=== PATIENT | female | born 1985 | race Hispanic/Latino ===

== ENCOUNTER 2018-02-15 11:16 | Emergency (ER) | payer MEDICAID, OTHER ==
[2018-02-15 11:16] VITALS: BMI 22.3
--- NOTE | 2018-02-15 13:27 | C.PDOC ---
History Of Present Illness 32 y/o female presents to ED requesting detox from ETOH and Marijuana, last use yesterday. At ED patient appears to be anxious appearing and asking currently denies chest pain, suicidal ideation, homicidal ideation, hallucinations or any other physical complaints at this time. Time Seen by Provider: 02/15/18 12:28 Chief Complaint (Nursing): Substance Abuse History Per: Patient History/Exam Limitations: no limitations Onset/Duration Of Symptoms: Days Current Symptoms Are (Timing): Still Present Suicide/Self Injury Attempted (Context): None Modifying Factor(s): Alcohol, Marijuana Past Medical History Reviewed: Historical Data, Nursing Documentation, Vital Signs Vital Signs: Last Vital Signs Temp 97.6 F 02/15/18 15:14 Pulse 91 H 02/15/18 15:14 Resp 18 02/15/18 15:14 BP 134/88 02/15/18 15:14 Pulse Ox 99 02/15/18 15:14 - Medical History PMH: Anxiety, Bronchitis, Gastrointestinal Ulcer, Pancreatitis Surgical History: Endoscopy - [facility] Procedures INJECT/INFUSE NEC (06/18/04) Family History: States: No Known Family Hx - Social History Hx Tobacco Use: No Hx Alcohol Use: Yes Hx Substance Use: Yes - Immunization History Hx Tetanus Toxoid Vaccination: No Hx Influenza Vaccination: No Hx Pneumococcal Vaccination: No Review Of Systems Constitutional: Negative for: Fever, Chills Cardiovascular: Negative for: Chest Pain Gastrointestinal: Negative for: Nausea, Vomiting Psych: Negative for: Suicidal ideation, Withdrawal Physical Exam - Physical Exam Appears: Non-toxic, Other (Anxious) Skin: Warm, Dry, No Rash Head: Atraumatic, Normacephalic Eye(s): bilateral: Normal Inspection Oral Mucosa: Moist Neck: Normal ROM, Supple Cardiovascular: Rhythm Regular Respiratory: Normal Breath Sounds, No Rales, No Rhonchi, No Wheezing Gastrointestinal/Abdominal: Soft, No Tenderness, No Guarding, No Rebound Neurological/Psych: Oriented x3, Normal Speech, Normal Cognition ED Course And Treatment O2 Sat by Pulse Oximetry: 98 (RA) Pulse Ox Interpretation: Normal Progress Note: On re-evlauation, pt is afebrile, hemodynamicaly stable. NOn- toxic. AMbulatory in Ed with stable gait. Neck: Supple, (-)JVD. Lungs: CTA B/L , BS equal B/L. Abd: benign, (-) guaridng, (-) rebound. Neurologicaly Pt was given outpt resources. Pt advised. Ref. to Follow up with Detox in 1-2 days for re-eval. return to Ed if any worsening or new changes. Disposition Counseled Patient/Family Regarding: Diagnosis, Need For Followup - Disposition Referrals: [facility] at [facility] [Outside] Disposition: HOME/ ROUTINE Disposition Time: 13:27 Condition: STABLE Additional Instructions: CALL DETOX TOMORROW AT [phone] FOR BED AVAILABILITY RETURN TO ED IF ANY NEW CHANGES. 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 - Scribe Statement The provider has reviewed the documentation as recorded by the Scribcorazon Schaffer All medical record entries made by the Philipibcorazon were at my direction and personally dictated by me. I have reviewed the chart and agree that the record accurately reflects my personal performance of the history, physical exam, medical decision making, and the department course for this patient. I have also personally directed, reviewed, and agree with the discharge instructions and disposition.
[2018-02-15 13:52] VITALS: RESP 18
[2018-02-15 15:15] VITALS: BP 134/88; PULSE 91; TEMP 97.6
[2018-02-17 04:05] VITALS: O2SAT 98
== END 2018-02-15 15:14 | disposition home or self-care (01) ==
LOC: C.ER 11:16
DX: F10.10 Alcohol abuse, uncomplicated (principal); Y90.9 Presence of alcohol in blood, level not specified
CPT/HCPCS: 96372; 99284; J2060

== ENCOUNTER 2018-02-16 01:06 | Inpatient (IN) | payer MEDICAID, OTHER ==
[2018-02-16 01:06] VITALS: BMI 22.3
--- NOTE | 2018-02-16 02:31 | C.PDOC ---
History Of Present Illness <María Vazquez - Last Filed: 02/16/18 07:23> <Marv Haywood - Last Filed: 02/18/18 20:01> 32 year old female presents to the emergency department requesting detox from alcohol. Patient reports having a history of depression, and states that she was seen in the ED earlier requesting detox. (Marv Haywood R) <María Vazquez - Last Filed: 02/16/18 07:23> History Per: Patient History/Exam Limitations: intoxication Onset/Duration Of Symptoms: Hrs Current Symptoms Are (Timing): Still Present Modifying Factor(s): Alcohol <Marv Haywood R - Last Filed: 02/18/18 20:01> Chief Complaint (Nursing): Substance Abuse Past Medical History Reviewed: Historical Data, Nursing Documentation, Vital Signs - Medical History PMH: Anxiety, Bronchitis, Gastrointestinal Ulcer, Pancreatitis Denies: Depression, Diabetes, Hepatitis, HIV, HTN, End Stage Renal Disease, Chronic Kidney Disease, Seizures, Sexually Transmitted Disease Surgical History: Endoscopy Family History: States: Unknown Family Hx - Social History Hx Tobacco Use: No Hx Alcohol Use: Yes (DRINKING 17 YRS) Hx Substance Use: Yes (WEED) - Immunization History Hx Tetanus Toxoid Vaccination: No Hx Influenza Vaccination: No Hx Pneumococcal Vaccination: No <Marv Haywood R - Last Filed: 02/18/18 20:01> Vital Signs: Last Vital Signs Temp 98.3 F 02/18/18 16:46 Pulse 84 02/18/18 16:46 Resp 18 02/18/18 16:46 BP 117/79 02/18/18 16:46 Pulse Ox 97 02/18/18 20:01 - [facility] Procedures INJECT/INFUSE NEC (06/18/04) Review Of Systems Constitutional: Negative for: Fever, Chills Neurological: Positive for: Other (intoxication) <Marv Haywood R - Last Filed: 02/18/18 20:01> Physical Exam - Physical Exam Appears: Non-toxic, No Acute Distress Oral Mucosa: Other (smell of EtOH on breath) Cardiovascular: Rhythm Regular Respiratory: Normal Breath Sounds Gastrointestinal/Abdominal: Normal Exam, Soft, No Tenderness <Marv Haywood R - Last Filed: 02/18/18 20:01> ED Course And Treatment - Laboratory Results Result Diagrams: 02/16/18 02:41 02/16/18 02:41 <María Vazquez - Last Filed: 02/16/18 07:23> - Laboratory Results Result Diagrams: 02/18/18 14:17 02/18/18 14:17 O2 Sat by Pulse Oximetry: 97 (RA) Pulse Ox Interpretation: Normal <YobanyMarv Gurwinder - Last Filed: 02/18/18 20:01> Medical Decision Making <María Vazquez - Last Filed: 02/16/18 07:23> <Gay Haywoodankita Purdy - Last Filed: 02/18/18 20:01> Medical Decision Making: Plan: Alcohol Serum CMP Drug Screen CBC HCG Urinalysis (Marv Haywood) Disposition Counseled Patient/Family Regarding: Diagnosis - Disposition Disposition Time: 07:22 - POA Present On Arrival: None <María Vazquez - Last Filed: 02/16/18 07:23> Discussed With : Olimpia Mendiola Counseled Patient/Family Regarding: Diagnosis - POA Present On Arrival: None <Marv Haywood - Last Filed: 02/18/18 20:01> - Disposition Disposition: HOSPITALIZED Condition: STABLE - Clinical Impression Clinical Impression: Alcohol abuse <María Vazquez - Last Filed: 02/16/18 07:23> - Scribe Statement The provider has reviewed the documentation as recorded by the Scribe (Viktor Woodard) <YobanyMarv Gurwinder - Last Filed: 02/18/18 20:01> - Scribe Statement Provider Attestation: All medical record entries made by the Scribe were at my direction and personally dictated by me. I have reviewed the chart and agree that the record accurately reflects my personal performance of the history, physical exam, medical decision making, and the department course for this patient. I have also personally directed, reviewed, and agree with the discharge instructions and disposition. (Marv Haywood) Decision To Admit - Pt Status Changed To: Hospital Disposition Of: Inpatient - Admit Certification Admit to Inpatient:: After my assessment, the patient will require hospitalization for at least two midnights. This is because of the severity of symptoms shown, intensity of services needed, and/or the medical risk in this patient being treated as an outpatient. - InPatient: Physician Admission Certification: I certify that this patient requires 2 or more midnights of care for the following reason:: see note - . Bed Request Type: Detox Admitting Physician: Olimpia Mendiola <María Vazquez - Last Filed: 02/16/18 07:23> <Marv Haywood - Last Filed: 02/18/18 20:01> - . Patient Diagnosis: Alcohol abuse
[2018-02-16 02:44] LABS: BASO # 0.1 K/uL (0.0-0.2); BASO % 1.1 % (0.0-2.0); EOS # 0.1 K/uL (0.0-0.7); EOS % 1.9 % (0.0-4.0); HEMOGLOBIN 14.2 g/dL (11.0-16.0); LYMPH # 2.3 K/uL (1.0-4.3); LYMPH % 41.2 % (20.0-40.0); MEAN CORPUSCULAR HEMOGLOBIN 33.1 pg (27.0-31.0); MEAN CORPUSCULAR HGB CONC 35.2 g/dL (33.0-37.0); MEAN PLATELET VOLUME 7.9 fL (7.2-11.7); MONO # 0.7 K/uL (0.0-0.8); MONO % 12.5 % (0.0-10.0); NEUT # 2.4 K/uL (1.8-7.0); NEUT % 43.3 % (50.0-75.0); RBC 4.27 Mil/uL (3.80-5.20); RED CELL DISTRIBUTION WIDTH 12.8 % (11.5-14.5); WHITE BLOOD COUNT 5.6 K/uL (4.8-10.8)
[2018-02-16 02:44] LABS: SQUAMOUS EPITHIAL < 1 /hpf (0-5); URINE BILIRUBIN NEGATIVE (NEGATIVE); URINE CLARITY Clear (Clear); URINE COLOR Straw (YELLOW); URINE GLUCOSE (UA) NORMAL (Normal); URINE LEUKOCYTE ESTERASE NEG Leu/uL (Negative); URINE PROTEIN NEGATIVE (NEGATIVE); URINE UROBILINOGEN NORMAL mg/dL (0.2-1.0)
[2018-02-16 02:45] LABS: URINE BLOOD NEGATIVE (NEGATIVE)
[2018-02-16 02:57] LABS: ALB/GLOB RATIO 1.2 (1.0-2.1); ALBUMIN 4.7 g/dL (3.5-5.0); ALT/SGPT 19 U/L (9-52); AST/SGOT 45 U/L (14-36); BLOOD UREA NITROGEN 6 mg/dL (7-17); CALCIUM 9.1 mg/dl (8.6-10.4); GFR AFRICAN-AMERICAN > 60; GFR NON-AFRICAN AMERICAN > 60
[2018-02-16 03:03] LABS: BARBITURATES, UR NEGATIVE (NEGATIVE); BENZODIAZEPINES, UR NEGATIVE (NEGATIVE); OPIATES, UR NEGATIVE (NEGATIVE); PHENCYCLIDINE, UR NEGATIVE (NEGATIVE)
--- NOTE | 2018-02-16 11:35 | PCM.BM ---
<Marlyn Terrazas - Last Filed: 02/16/18 11:34> Treatment Plan Problems - Problems identified on initial assessmt potential for alcohol withdrawals Date Initiated: 02/16/18 Assessment reference: NA Status: Active Treatment assets and liabiliti Patient Assests: adapts well, cooperative, ADL independent, negotiates basic needs Patient Liabilities: substance abuse - Milieu Protocol Maintain good personal hygiene: daily Encourage regular showers, daily Remind patient to perform daily oral care, daily Assist patient to perform ADL's Conduct patient checks and document Observation sheet: Q15 minutes Maintain personal safety: every shift Educate patient to report safety concerns to staff, every shift Monitor environment for contraband/sharps Medication safety: Monitor for expected outcome, potential side effects: every shift, Assess barriers to learning: every shift, Assess readiness for medication education: every shift <Bianca Gray - Last Filed: 02/18/18 11:15> - Diagnosis (1) Alcohol use disorder, severe, dependence Status: Acute Interventions: 02/18/18 11:15 * Assess 7x/week regarding severity of withdrawal * Educate regarding risks, benefits, side effects and alternatives of medications * Use Motivational Interviewing for abstinence * Use CBT for relapse prevention * Medication management for withdrawal symptoms * Encourage medication assisted treatment *
[2018-02-16] MEDS ORDERED: Vitamins A & D Oint UD Foilpak TOP PRN (11:47)
[2018-02-16] MEDS: Benzocaine/Menthol (Cepacol) Lozenge MT PRN (17:31)
[2018-02-16] MEDS: Multiple Vitamins Tab PO SCH (18:00)
[2018-02-17] MEDS: Multiple Vitamins Tab PO SCH (09:04)
[2018-02-17] MEDS: Pantoprazole 20 mg EC Tab PO SCH (10:31)
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
[2018-02-17 12:39] VITALS: RESP 18
[2018-02-17] MEDS: Benzocaine/Menthol (Cepacol) Lozenge MT PRN ×2 (13:49→19:29)
[2018-02-18] MEDS: Pantoprazole 20 mg EC Tab PO SCH (09:19)
[2018-02-18] MEDS: Multiple Vitamins Tab PO SCH (09:19)
--- NOTE | 2018-02-18 11:14 | PCM.PYCHPN ---
Psychiatric Progress Note - Psychiatric Progress Note Patient seen today, length of contact: 17 min Patient Chief Complaint: "I am not well" Problems Identified/Issues Discussed: The pt is seen, chart reviewed, case discussed with staff. The pt is compliant with medications and reports no side-effects. Symptoms are improving but needs more time to stabilize. After care discussed, support and psychoeducation given. She now says she is NOT sure if she can attend IOP bc she has to work Risks discussed No Ses from naltrexone CXR for cough Medication Change: Yes (detox changes daily) Medical Record Reviewed: Yes Mental Status Examination - Cognitive Function Orientation: Person, Place, Situation, Time Memory: Impaired Attention: Poor Concentration: Poor Association: WNL Fund of Knowledge: Poor - Mood Mood: Depressed, Anxious - Affect Affect: Constricted - Speech Speech: Appropriate - Formal Thought Process Formal Thought Process: No Impairment - Suicidal Ideation Suicidal Ideation: No - Homicidal Ideation Homicidal Ideation: No Goal/Treatment Plan - Goal/Treatment Plan Need for Continued Stay: Discharge may exacerbated symptoms, Severe functional impairment Progress Toward Problem(s) and Goals/Treatment Plan: Taper with Librium Gabapentin for augmentation Zoloft for PTSD and depression, dose increased As needed medications All risks, benefits and alternatives of the meds discussed, and the pt agreed and understood. Attend groups and activities Supportive therapy and psychoeducation MA for abstinence CBT for relapse prevention Encourage MAT: She agreed for naltrexone for now Refer to rehab or IOP, and self-help groups Smoking cessation with MA Nicotine patch if needed CXR
--- NOTE | 2018-02-18 12:15 | RAD ---
HISTORY: Alcohol abuse. Cough COMPARISON: No prior. TECHNIQUE: Chest PA and lateral FINDINGS: LUNGS: No active pulmonary disease. PLEURA: No significant pleural effusion identified. No pneumothorax apparent. CARDIOVASCULAR: Normal. OSSEOUS STRUCTURES: No significant abnormalities. VISUALIZED UPPER ABDOMEN: Normal. OTHER FINDINGS: None. IMPRESSION: No active disease.
[2018-02-18 14:23] LABS: BASO % 0.6 % (0.0-2.0); EOS # 0.2 K/uL (0.0-0.7); EOS % 3.4 % (0.0-4.0); HEMOGLOBIN 13.2 g/dL (11.0-16.0); LYMPH # 0.9 K/uL (1.0-4.3); LYMPH % 20.7 % (20.0-40.0); MEAN CELL VOLUME 94.7 fL (81.0-99.0); MEAN CORPUSCULAR HEMOGLOBIN 33.4 pg (27.0-31.0); MEAN CORPUSCULAR HGB CONC 35.3 g/dL (33.0-37.0); MEAN PLATELET VOLUME 8.6 fL (7.2-11.7); MONO # 0.5 K/uL (0.0-0.8); MONO % 10.1 % (0.0-10.0); NEUT # 2.9 K/uL (1.8-7.0); NEUT % 65.2 % (50.0-75.0); RBC 3.94 Mil/uL (3.80-5.20); RED CELL DISTRIBUTION WIDTH 12.6 % (11.5-14.5); WHITE BLOOD COUNT 4.5 K/uL (4.8-10.8)
[2018-02-18 14:45] LABS: ALB/GLOB RATIO 1.1 (1.0-2.1); ALBUMIN 4.1 g/dL (3.5-5.0); ALT/SGPT 28 U/L (9-52); AST/SGOT 86 U/L (14-36); BLOOD UREA NITROGEN 7 mg/dL (7-17); CALCIUM 9.5 mg/dl (8.6-10.4); GFR AFRICAN-AMERICAN > 60; GFR NON-AFRICAN AMERICAN > 60; LIPASE 39 U/L (23-300)
[2018-02-18] MEDS: Benzocaine/Menthol (Cepacol) Lozenge MT PRN (17:04)
[2018-02-19] MEDS: Benzocaine/Menthol (Cepacol) Lozenge MT PRN (10:10)
[2018-02-19] MEDS: Multiple Vitamins Tab PO SCH (10:11)
[2018-02-19] MEDS: Pantoprazole 20 mg EC Tab PO SCH (10:11)
--- NOTE | 2018-02-19 11:13 | PCM.PYCHPN ---
Psychiatric Progress Note - Psychiatric Progress Note Patient seen today, length of contact: 17 min Patient Chief Complaint: "I am not well" Problems Identified/Issues Discussed: The pt is seen, chart reviewed, case discussed with staff. The pt is compliant with medications and reports no side-effects. Symptoms are improving but needs more time to stabilize. After care discussed, support and psychoeducation given. She now says she is NOT sure if she can attend IOP bc she has to work Risks discussed No Ses from naltrexone CXR for cough Medication Change: Yes (detox changes daily) Medical Record Reviewed: Yes Mental Status Examination - Cognitive Function Orientation: Person, Place, Situation, Time Memory: Impaired Attention: Poor Concentration: Poor Association: WNL Fund of Knowledge: Poor - Mood Mood: Depressed, Anxious - Affect Affect: Constricted - Speech Speech: Appropriate - Formal Thought Process Formal Thought Process: No Impairment - Suicidal Ideation Suicidal Ideation: No - Homicidal Ideation Homicidal Ideation: No Goal/Treatment Plan - Goal/Treatment Plan Need for Continued Stay: Discharge may exacerbated symptoms, Severe functional impairment Progress Toward Problem(s) and Goals/Treatment Plan: Taper with Librium Gabapentin for augmentation Zoloft for PTSD and depression, dose increased As needed medications All risks, benefits and alternatives of the meds discussed, and the pt agreed and understood. Attend groups and activities Supportive therapy and psychoeducation [place] for abstinence CBT for relapse prevention Encourage MAT: She agreed for naltrexone for now Refer to rehab or IOP, and self-help groups Smoking cessation with [place] Nicotine patch if needed CXR
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
[2018-02-20 09:05] VITALS: BP 101/70; PULSE 88; TEMP 98.3; O2SAT 98
[2018-02-20] MEDS: Pantoprazole 20 mg EC Tab PO SCH (09:25)
[2018-02-20] MEDS: Multiple Vitamins Tab PO SCH (09:25)
== END 2018-02-20 12:00 | disposition home or self-care (01) | DRG 751 ==
LOC: C.ER 01:06 → C.9E 07:24 → C.7D 10:51
PROVIDERS: ADMIT Psychiatry & Neurology Psychiatry; ATTEND Psychiatry & Neurology Psychiatry
PROC: HZ2ZZZZ Detoxification Services for Substance Abuse Treatment (ICD-10-PCS; principal; 2018-02-16)
PROC: HZ52ZZZ Individual Psychotherapy for Substance Abuse Treatment, Cognitive-Behavioral (ICD-10-PCS; 2018-02-16)
PROC: HZ59ZZZ Individual Psychotherapy for Substance Abuse Treatment, Supportive (ICD-10-PCS; 2018-02-16)
PROC: HZ56ZZZ Individual Psychotherapy for Substance Abuse Treatment, Psychoeducation (ICD-10-PCS; 2018-02-16)
PROC: HZ42ZZZ Group Counseling for Substance Abuse Treatment, Cognitive-Behavioral (ICD-10-PCS; 2018-02-16)
PROC: HZ46ZZZ Group Counseling for Substance Abuse Treatment, Psychoeducation (ICD-10-PCS; 2018-02-16)
PROC: GZHZZZZ Group Psychotherapy (ICD-10-PCS; 2018-02-16)
PROC: GZ58ZZZ Individual Psychotherapy, Cognitive-Behavioral (ICD-10-PCS; 2018-02-16)
PROC: GZ56ZZZ Individual Psychotherapy, Supportive (ICD-10-PCS; 2018-02-16)
DX: F10.230 Alcohol dependence with withdrawal, uncomplicated (principal); F12.20 Cannabis dependence, uncomplicated; Y90.8 Blood alcohol level of 240 mg/100 ml or more; F14.10 Cocaine abuse, uncomplicated; F32.9 Major depressive disorder, single episode, unspecified; F43.10 Post-traumatic stress disorder, unspecified; F41.9 Anxiety disorder, unspecified; R05 Cough

== ENCOUNTER 2018-08-24 11:21 | Inpatient (IN) | payer MEDICAID, OTHER ==
[2018-08-24 11:21] VITALS: BMI 21.3
[2018-08-24] MEDS ORDERED: Sodium Chloride 0.9% 1,000 ML IV ONE (11:59)
[2018-08-24] MEDS ORDERED: Sodium Chloride 0.9% 1,000 ML ONE ×2 (12:23→12:58)
[2018-08-24] MEDS: Sodium Chloride 0.9% 1,000 ML IV ONE (12:27)
[2018-08-24 12:37] LABS: BASO % 0.5 % (0.0-2.0); EOS % 0.4 % (0.0-4.0); LYMPH # 0.7 K/uL (1.0-4.3); MEAN CELL VOLUME 92.9 fL (81.0-99.0); MEAN CORPUSCULAR HEMOGLOBIN 32.2 pg (27.0-31.0); MEAN CORPUSCULAR HGB CONC 34.7 g/dL (33.0-37.0); MEAN PLATELET VOLUME 7.9 fL (7.2-11.7); MONO # 0.7 K/uL (0.0-0.8); MONO % 8.9 % (0.0-10.0); NEUT # 6.1 K/uL (1.8-7.0); NEUT % 81.2 % (50.0-75.0); NRBC % 0.1 % (0.0-2.0); PLATELET COUNT 247 K/uL (130-400); RBC 4.89 Mil/uL (3.80-5.20); RED CELL DISTRIBUTION WIDTH 13.1 % (11.5-14.5)
[2018-08-24 12:38] LABS: HEMOGLOBIN 15.8 g/dL (11.0-16.0); WHITE BLOOD COUNT 7.5 K/uL (4.8-10.8)
--- NOTE | 2018-08-24 12:43 | C.PDOC ---
History Of Present Illness 32 y/o female presents to the ED complaining of nausea, vomiting, and abdominal pain that began today. Patient reports history of alcohol abuse and states she is currently trying to self detox. Of note patient was recently in [place], states she was diagnosed with pancreatitis. Patient is interested in detox but is mostly concerned that abdominal pain is consistent with another episode of pancreatitis. She denies any fever, chills, SOB, dizziness, diarrhea, black or bloody stools. Time Seen by Provider: 08/24/18 11:38 Chief Complaint (Nursing): Substance Abuse History Per: Patient History/Exam Limitations: no limitations Onset/Duration Of Symptoms: Hrs Current Symptoms Are (Timing): Still Present Location Of Pain/Discomfort: RUQ, LUQ Quality Of Discomfort: "Pain" Associated Symptoms: Nausea, Vomiting Past Medical History Reviewed: Historical Data, Nursing Documentation, Vital Signs Vital Signs: Last Vital Signs Temp 98.4 F 08/24/18 12:19 Pulse 94 H 08/24/18 12:19 Resp 20 08/24/18 12:19 BP 159/94 H 08/24/18 12:19 Pulse Ox 98 08/24/18 12:19 - Medical History PMH: Anxiety, Bronchitis, Depression, Gastrointestinal Ulcer, Pancreatitis Denies: Diabetes, Hepatitis, HIV, HTN, End Stage Renal Disease, Chronic Kidney Disease, Seizures, Sexually Transmitted Disease Surgical History: Endoscopy - [facility] Procedures DETOXIFICATION SERVICES FOR SUBSTANCE ABUSE TREATMENT (02/16/18) GROUP REGISTRAR COLLEGE OR UNIVERSITY FOR SUBSTANCE ABUSE TREATMENT, PSYCHOEDUCATION (02/16/18) GROUP REGISTRAR COLLEGE OR UNIVERSITY FOR SUBSTANCE ABUSE, COGNITIVE BEHAVIORAL (02/16/18) GROUP PSYCHOTHERAPY (02/16/18) INDIV PSYCHOTHERAPY FOR SUBSTANCE ABUSE TREATMENT, SUPPORT (02/16/18) INDIV PSYCHOTHERAPY FOR SUBSTANCE ABUSE, COGNITIV BEHAVIORAL (02/16/18) INDIV PSYCHOTHERAPY FOR SUBSTANCE ABUSE, PSYCHOEDUCATION (02/16/18) INDIVIDUAL PSYCHOTHERAPY, COGNITIVE-BEHAVIORAL (02/16/18) INDIVIDUAL PSYCHOTHERAPY, SUPPORTIVE (02/16/18) INJECT/INFUSE NEC (06/18/04) Family History: States: Unknown Family Hx - Social History Hx Tobacco Use: No Hx Alcohol Use: Yes (DRINKING 17 YRS) Hx Substance Use: Yes - Immunization History Hx Tetanus Toxoid Vaccination: No Hx Influenza Vaccination: No Hx Pneumococcal Vaccination: No Review Of Systems Constitutional: Negative for: Fever, Chills Cardiovascular: Negative for: Chest Pain Respiratory: Negative for: Shortness of Breath Gastrointestinal: Positive for: Nausea, Vomiting, Abdominal Pain. Negative for: Diarrhea, Hematochezia Genitourinary: Negative for: Dysuria, Frequency, Hematuria Neurological: Negative for: Weakness, Numbness, Dizziness Psych: Positive for: Withdrawal (from alcohol). Negative for: Suicidal ideation Physical Exam - Physical Exam Appears: Non-toxic, In Acute Distress (mild pain), Other (Writhing in pain, actively vomiting) Skin: Warm, Dry Head: Atraumatic, Normacephalic Eye(s): bilateral: Normal Inspection, PERRL, EOMI Neck: Normal ROM Chest: Symmetrical Cardiovascular: Rhythm Regular, No Murmur Respiratory: Normal Breath Sounds, No Accessory Muscle Use Gastrointestinal/Abdominal: Soft, Tenderness (to the upper abdomen), No Guarding, No Rebound Back: No CVA Tenderness Extremity: Bilateral: Atraumatic, Normal Color And Temperature, Normal ROM Neurological/Psych: Oriented x3, Normal Speech ED Course And Treatment - Laboratory Results Result Diagrams: 08/24/18 12:27 08/24/18 12:27 Lab Interpretation: No Acute Changes Urine POC: Negative O2 Sat by Pulse Oximetry: 98 (RA) Pulse Ox Interpretation: Normal - Other Rad No standard instances Interpretation: FINDINGS: LOWER THORAX: No visible consolidation, pleural effusion, or pneumothorax. LIVER: Hepatomegaly. Hypoattenuation of the liver compatible with hepatic steatosis. GALLBLADDER AND BILE DUCTS: Unremarkable. PANCREAS: Pancreas appears edematous with peripancreatic inflammatory changes evident. SPLEEN: Unremarkable. ADRENALS: Unremarkable. KIDNEYS AND URETERS: The kidneys enhance symmetrically. No hydronephrosis or obstructing calculus identified. VASCULATURE: No aortic aneurysm. No atherosclerotic calcification or mural plaque present. BOWEL: Stomach is nondistended. Lack of oral contrast limits evaluation for bowel pathology. Bowel loops appear within normal limits of caliber without evidence of obstruction. APPENDIX: The appendix is not identified. No secondary signs of acute appendicitis. PERITONEUM: No significant free fluid. No definite free air. LYMPH NODES: No bulky adenopathy identified. BLADDER: Unremarkable. REPRODUCTIVE: The uterus is present. Probable bilateral ovarian cysts. BONES: No acute osseous abnormality is detected. OTHER FINDINGS: None. IMPRESSION: Pancreas appears edematous with peripancreatic inflammatory changes evident. Findings consistent with acute appendicitis. Correlate with amylase and lipase. Hepatomegaly. Hypoattenuation of the liver compatible with hepatic steatosis. Probable bilateral ovarian cyst. Pelvic ultrasound may be considered for further evaluation if indicated. - CT Scan/US No standard instances Other Rad Studies (CT/US): Read By Radiologist Progress Note: Treated with IVF NSS x2, ativan and toradol. On re-evaluation abdomen mild ternderness Reassessment Condition: Unchanged - Physician Consult Information Physician Contacted: Eh Laurent Outcome Of Conversation: admit Medical Decision Making Medical Decision Making: Plan: --CMP --Lipase --Amylase --Alcohol serum --CBC --UA --Urine HCG --1 mg Ativan IV --IV fluids Disposition Discussed With Dr.: Eh Laurent Doctor Will See Patient In The: Hospital - Disposition Disposition: HOSPITALIZED Disposition Time: 14:00 Condition: STABLE - POA Present On Arrival: None - Clinical Impression Clinical Impression: Pancreatitis, Vomiting, Nausea and vomiting - PA / GEOINT ANALYST / Resident Statement MD/DO has reviewed & agrees with the documentation as recorded. - Scribe Statement The provider has reviewed the documentation as recorded by the Scribe (Yelena Parks) All medical record entries made by the Scribe were at my direction and personally dictated by me. I have reviewed the chart and agree that the record accurately reflects my personal performance of the history, physical exam, medical decision making, and the department course for this patient. I have also personally directed, reviewed, and agree with the discharge instructions and disposition. Decision To Admit - Pt Status Changed To: Hospital Disposition Of: Inpatient - Admit Certification Admit to Inpatient:: After my assessment, the patient will require hospitalization for at least two midnights. This is because of the severity of symptoms shown, intensity of services needed, and/or the medical risk in this patient being treated as an outpatient. - InPatient: Physician Admission Certification:: abdominal pain. Pancreatitis - . Bed Request Type: Regular Admitting Physician: Eh Laurent Patient Diagnosis: Pancreatitis, Vomiting, Nausea and vomiting
[2018-08-24 12:57] LABS: SQUAMOUS EPITHIAL 2 /hpf (0-5); URINE BACTERIA RARE (<OCC); URINE BILIRUBIN NEGATIVE (NEGATIVE); URINE BLOOD 1+ (NEGATIVE); URINE CLARITY Clear (Clear); URINE COLOR Yellow (YELLOW); URINE GLUCOSE (UA) NORMAL (Normal); URINE HYALINE CAST 0-2 /lpf (0-2); URINE LEUKOCYTE ESTERASE NEG Leu/uL (Negative); URINE PROTEIN 2+ mg/dL (NEGATIVE); URINE UROBILINOGEN NORMAL mg/dL (0.2-1.0)
[2018-08-24 12:58] LABS: HCG,QUALITATIVE URINE NEGATIVE (NEGATIVE)
[2018-08-24 12:58] LABS: ALB/GLOB RATIO 1.1 (1.0-2.1); ALBUMIN 5.4 g/dL (3.5-5.0); ALT/SGPT 42 U/L (9-52); AMYLASE 117 U/L (30-110); AST/SGOT 72 U/L (14-36); BLOOD UREA NITROGEN 10 mg/dL (7-17); CALCIUM 9.8 mg/dl (8.6-10.4); GFR NON-AFRICAN AMERICAN > 60; LIPASE 756 U/L (23-300)
[2018-08-24 13:04] LABS: BANDS 7 % (0-2); EOSINOPHIL 1 % (0-4); LYMPHOCYTE 9 % (20-40); MONOCYTE 7 % (0-10); NEUTROPHIL 75 % (50-75); PLATELET ESTIMATE NORMAL (NORMAL); REACTIVE LYMPHOCYTES 1 % (0-0); STOMATOCYTES SLIGHT; TOTAL CELLS COUNTED 100
[2018-08-24] MEDS ORDERED: Iodixanol 320 mg/ml 150 ml Bottle IV ONE (14:13)
[2018-08-24 14:46] LABS: BARBITURATES, UR NEGATIVE (NEGATIVE); PHENCYCLIDINE, UR NEGATIVE (NEGATIVE)
[2018-08-24] MEDS ORDERED: Multivitamin (MVI) 10 ML, Thiamine 100 MG, Folic Acid 1 MG in Sodium Chloride 0.9% 1,00... IV ONE (15:01)
[2018-08-24 15:07] LABS: OPIATES, UR NEGATIVE (NEGATIVE)
[2018-08-24 15:12] LABS: BENZODIAZEPINES, UR POSITIVE (NEGATIVE)
--- NOTE | 2018-08-24 15:50 | CT ---
Date of service: 08/24/2018 PROCEDURE: CT Abdomen and Pelvis with contrast HISTORY: pancreatitis COMPARISON: None available. TECHNIQUE: Contrast dose: 100 mL Visipaque IV Radiation dose: Total exam DLP = 261.44 mGy-cm. This CT exam was performed using one or more of the following dose reduction techniques: Automated exposure control, adjustment of the mA and/or kV according to patient size, and/or use of iterative reconstruction technique. FINDINGS: LOWER THORAX: No visible consolidation, pleural effusion, or pneumothorax. LIVER: Hepatomegaly. Hypoattenuation of the liver compatible with hepatic steatosis. GALLBLADDER AND BILE DUCTS: Unremarkable. PANCREAS: Pancreas appears edematous with peripancreatic inflammatory changes evident. SPLEEN: Unremarkable. ADRENALS: Unremarkable. KIDNEYS AND URETERS: The kidneys enhance symmetrically. No hydronephrosis or obstructing calculus identified. VASCULATURE: No aortic aneurysm. No atherosclerotic calcification or mural plaque present. BOWEL: Stomach is nondistended. Lack of oral contrast limits evaluation for bowel pathology. Bowel loops appear within normal limits of caliber without evidence of obstruction. APPENDIX: The appendix is not identified. No secondary signs of acute appendicitis. PERITONEUM: No significant free fluid. No definite free air. LYMPH NODES: No bulky adenopathy identified. BLADDER: Unremarkable. REPRODUCTIVE: The uterus is present. Probable bilateral ovarian cysts. BONES: No acute osseous abnormality is detected. OTHER FINDINGS: None. IMPRESSION: Pancreas appears edematous with peripancreatic inflammatory changes evident. Findings consistent with acute appendicitis. Correlate with amylase and lipase. Hepatomegaly. Hypoattenuation of the liver compatible with hepatic steatosis. Probable bilateral ovarian cyst. Pelvic ultrasound may be considered for further evaluation if indicated.
[2018-08-24 15:54] VITALS: RESP 20
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
[2018-08-24] MEDS: Sodium Chloride 0.9% 1,000 ML IV SCH (21:49)
[2018-08-25] MEDS: Sodium Chloride 0.9% 1,000 ML IV SCH ×2 (05:30)
[2018-08-25 08:37] LABS: BASO % 0.4 % (0.0-2.0); EOS # 0.1 K/uL (0.0-0.7); EOS % 0.9 % (0.0-4.0); LYMPH # 0.7 K/uL (1.0-4.3); LYMPH % 11.2 % (20.0-40.0); MEAN CORPUSCULAR HEMOGLOBIN 32.4 pg (27.0-31.0); MEAN CORPUSCULAR HGB CONC 34.8 g/dL (33.0-37.0); MEAN PLATELET VOLUME 8.4 fL (7.2-11.7); MONO # 0.5 K/uL (0.0-0.8); MONO % 8.1 % (0.0-10.0); NEUT # 5.3 K/uL (1.8-7.0); NEUT % 79.4 % (50.0-75.0); NRBC % 0.1 % (0.0-2.0); RBC 4.04 Mil/uL (3.80-5.20); RED CELL DISTRIBUTION WIDTH 12.7 % (11.5-14.5); WHITE BLOOD COUNT 6.7 K/uL (4.8-10.8)
[2018-08-25 08:41] LABS: HEMOGLOBIN 13.1 g/dL (11.0-16.0)
[2018-08-25 08:47] LABS: ALB/GLOB RATIO 1.1 (1.0-2.1); ALBUMIN 3.5 g/dL (3.5-5.0); ALT/SGPT 30 U/L (9-52); AST/SGOT 43 U/L (14-36); BLOOD UREA NITROGEN 5 mg/dL (7-17); CALCIUM 8.3 mg/dl (8.6-10.4); GFR NON-AFRICAN AMERICAN > 60; LIPASE 998 U/L (23-300)
[2018-08-25] MEDS ORDERED: Potassium Chloride 20 mEq ER Tab PO ONE (09:16)
[2018-08-25] MEDS: Multiple Vitamins Tab PO SCH (09:56)
[2018-08-25] MEDS: Sodium Chloride 0.9% 1,000 ML IV ONE (11:17)
[2018-08-25] MEDS: Lactated Ringer's 1,000 ML IV SCH ×2 (14:17→19:21)
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
[2018-08-26] MEDS: Lactated Ringer's 1,000 ML IV SCH ×6 (00:42→16:29)
[2018-08-26 07:08] LABS: BASO % 0.3 % (0.0-2.0); EOS # 0.2 K/uL (0.0-0.7); EOS % 2.3 % (0.0-4.0); HEMOGLOBIN 13.2 g/dL (11.0-16.0); LYMPH # 0.8 K/uL (1.0-4.3); LYMPH % 10.8 % (20.0-40.0); MEAN CORPUSCULAR HEMOGLOBIN 32.6 pg (27.0-31.0); MEAN CORPUSCULAR HGB CONC 35.4 g/dL (33.0-37.0); MEAN PLATELET VOLUME 8.3 fL (7.2-11.7); MONO # 0.7 K/uL (0.0-0.8); MONO % 9.1 % (0.0-10.0); NEUT % 77.5 % (50.0-75.0); RBC 4.05 Mil/uL (3.80-5.20); RED CELL DISTRIBUTION WIDTH 12.8 % (11.5-14.5); WHITE BLOOD COUNT 7.7 K/uL (4.8-10.8)
[2018-08-26 08:15] LABS: ALBUMIN 3.7 g/dL (3.5-5.0); BLOOD UREA NITROGEN 2 mg/dL (7-17); CALCIUM 8.8 mg/dl (8.6-10.4); GFR NON-AFRICAN AMERICAN > 60
[2018-08-26 08:16] LABS: ALB/GLOB RATIO 1.2 (1.0-2.1); ALT/SGPT 32 U/L (9-52); AST/SGOT 42 U/L (14-36)
[2018-08-26] MEDS: Multiple Vitamins Tab PO SCH (10:08)
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
[2018-08-27 00:34] VITALS: O2SAT 97
[2018-08-27] MEDS: Lactated Ringer's 1,000 ML IV SCH ×2 (01:42→11:10)
[2018-08-27 07:18] LABS: BASO % 0.4 % (0.0-2.0); EOS # 0.2 K/uL (0.0-0.7); EOS % 2.6 % (0.0-4.0); HEMOGLOBIN 12.9 g/dL (11.0-16.0); LYMPH # 0.8 K/uL (1.0-4.3); LYMPH % 12.1 % (20.0-40.0); MEAN CELL VOLUME 91.7 fL (81.0-99.0); MEAN CORPUSCULAR HEMOGLOBIN 32.6 pg (27.0-31.0); MEAN CORPUSCULAR HGB CONC 35.5 g/dL (33.0-37.0); MEAN PLATELET VOLUME 8.5 fL (7.2-11.7); MONO # 0.6 K/uL (0.0-0.8); MONO % 9.4 % (0.0-10.0); NEUT # 5.1 K/uL (1.8-7.0); NEUT % 75.5 % (50.0-75.0); NRBC % 0.2 % (0.0-2.0); RBC 3.95 Mil/uL (3.80-5.20); RED CELL DISTRIBUTION WIDTH 12.9 % (11.5-14.5); WHITE BLOOD COUNT 6.7 K/uL (4.8-10.8)
[2018-08-27 07:47] LABS: ALB/GLOB RATIO 1.2 (1.0-2.1); ALBUMIN 3.6 g/dL (3.5-5.0); ALT/SGPT 33 U/L (9-52); AST/SGOT 31 U/L (14-36); BLOOD UREA NITROGEN 2 mg/dL (7-17); CALCIUM 8.7 mg/dl (8.6-10.4); GFR NON-AFRICAN AMERICAN > 60
[2018-08-27 07:55] VITALS: BP 130/82; PULSE 69; TEMP 98.6
[2018-08-27] MEDS ORDERED: Potassium Chl 40 mEq in D5-1/2 1,000 ML IV SCH (09:00)
[2018-08-27] MEDS ORDERED: Pneumococcal 23-Valent Vaccine IM ONE (10:00)
[2018-08-27] MEDS: Multiple Vitamins Tab PO SCH (11:00)
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
--- NOTE | 2018-08-29 12:29 | CARD ---
APPROVED REPORT Date of service: 08/24/2018 EKG Measurement Heart [id number] <Conclusion> Normal sinus rhythm Normal ECG
== END 2018-08-27 14:30 | disposition home or self-care (01) | DRG 439 ==
LOC: C.ER 11:21 → C.3T 13:42
PROVIDERS: ADMIT Hospitalist; ATTEND Hospitalist
DX: K85.20 Alcohol induced acute pancreatitis without necrosis or infection (principal); F10.239 Alcohol dependence with withdrawal, unspecified; K22.10 Ulcer of esophagus without bleeding; K35.80 Unspecified acute appendicitis; E87.6 Hypokalemia; F41.9 Anxiety disorder, unspecified; K76.0 Fatty (change of) liver, not elsewhere classified; N83.202 Unspecified ovarian cyst, left side; Z80.3 Family history of malignant neoplasm of breast; Z82.49 Family history of ischemic heart disease and other diseases of the circulatory system; Z83.3 Family history of diabetes mellitus; Z87.11 Personal history of peptic ulcer disease; Z87.19 Personal history of other diseases of the digestive system; Z87.891 Personal history of nicotine dependence

== ENCOUNTER 2019-02-14 04:16 | Emergency (ER) | payer MEDICAID, OTHER ==
[2019-02-14 04:16] VITALS: BMI 23.6
[2019-02-14 04:38] VITALS: TEMP 98.3
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
[2019-02-14 08:13] VITALS: RESP 18
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
--- NOTE | 2019-02-14 08:32 | RAD ---
Date of service: 02/14/2019 PROCEDURE: Radiographs of the Left Shoulder HISTORY: left shoulder pain COMPARISON: No prior. TECHNIQUE: Two views obtained.-technologist is noted that only two views were obtained as the patient "fell " FINDINGS: BONES: No humeral head fracture seen. There is linear and focal radiolucency more distal along the left humerus. To further evaluate this area, a left humerus x-ray bleeding left shoulder x-ray is advised. Diagnosis of exclusion is that of a left humeral shaft fracture JOINTS: Normal. Glenohumeral and acromioclavicular joints preserved. No osteoarthritis. SOFT TISSUES: Normal. OTHER FINDINGS: None. IMPRESSION: Limited exam-for reasons stated above. No left shoulder dislocation. Given the appearance more distal in the left humerus-consideration must be given to a left humeral shaft fracture. Overlying artifact could conceivably simulate this appearance. Further evaluation with a left humerus x-ray study is strongly recommended. Artifact probably lateral and medial to the left humeral shaft over the upper arm.. Comments a left humerus x-ray is strongly recommended in completing the left shoulder x-ray study is advised. Comments: Study marked for PA review .
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
[2019-02-14 09:58] VITALS: BP 96/54
[2019-02-14 10:12] VITALS: PULSE 88; O2SAT 97
--- NOTE | 2019-02-14 10:29 | RAD ---
PROCEDURE: Radiographs of the left humerus. HISTORY: ? humeral shaft fx from shoulder xray COMPARISON: Left shoulder x-ray 02/14/2019 TECHNIQUE: 2 views obtained. FINDINGS: BONES: The prior equivocal appearance concerning for possible left humeral shaft fracture is not reproduced on this exam which is better tailored for assessing this location. Prior left shoulder appearance is attributed to artifact. SOFT TISSUES: Normal. OTHER FINDINGS: None. IMPRESSION: Current study clarifies the equivocal findings on the prior limited left shoulder x-ray study. No left humeral shaft fracture suggested. Comments: Study marked for PA review .
== END 2019-02-14 10:06 | disposition home or self-care (01) ==
LOC: C.ER 04:16
DX: S43.402A Unspecified sprain of left shoulder joint, initial encounter (principal); Y09 Assault by unspecified means; S01.21XA Laceration without foreign body of nose, initial encounter; W18.30XA Fall on same level, unspecified, initial encounter; Y92.238 Other place in hospital as the place of occurrence of the external cause; R11.0 Nausea; F10.10 Alcohol abuse, uncomplicated; Y90.9 Presence of alcohol in blood, level not specified